=== PATIENT | female | born 1960 | race Caucasian/White ===

== ENCOUNTER 2017-12-01 12:12 | Inpatient (IN) | payer MEDICARE, BC ==
[2017-11-26 15:52] LABS: BASOPHILS % (AUTO) 0.7 % (0-1); EOSINOPHILS # (AUTO) 0.1 X10'3 (0-0.9); EOSINOPHILS % (AUTO) 1.3 % (0-6); LYMPHOCYTES # (AUTO) 1.7 X10'3 (1.1-4.8); MEAN CORPUSCULAR HEMOGLOBIN 35.8 PG (27.0-31.0); MEAN CORPUSCULAR HGB CONC 34.6 % (33.0-36.5); MEAN CORPUSCULAR VOLUME 103.6 FL (78-98); MEAN PLATELET VOLUME 6.7 FL (7.4-10.4); MONOCYTES # (AUTO) 0.8 X10'3 (0-0.9); MONOCYTES % (AUTO) 16.7 % (2-12); NEUTROPHILS # (AUTO) 2.2 X10'3 (1.8-7.7); NEUTROPHILS % (AUTO) 46.3 % (42-75); PRE OP HEMATOCRIT 36.9 % (35.0-45.0); PRE OP HEMOGLOBIN 12.8 g/dL (12.0-16.0); PRE OP PLATELET COUNT 374 X10'3 (140-440); RED BLOOD COUNT 3.56 X10'6 (4.20-5.60)
[2017-11-26 16:02] LABS: PRE OP INR 0.9 INR; PRE OP PROTIME 9.4 SECONDS (9.0-12.0)
[2017-11-26 16:06] LABS: ALBUMIN 4.2 G/DL (3.4-5.0); ALBUMIN/GLOBULIN RATIO 1.2 (1.1-1.5); ALKALINE PHOSPHATASE 82 IU/L (46-116); BLOOD UREA NITROGEN 14 MG/DL (7-18); BUN/CREATININE RATIO 16.7 (6.6-38.0); CALCIUM 9.5 MG/DL (8.5-10.1); CHLORIDE 100 MMOL/L (99-107); CREATININE 0.84 MG/DL (0.40-0.90); PRE OP ALT 32 U/L (30-65); PRE OP ANION GAP 8 (8-16); PRE OP AST 25 U/L (10-37); PRE OP BILIRUB, TOTAL 0.4 MG/DL (0.0-1.0); PRE OP GLUCOSE 93 MG/DL (70-104); PRE OP POTASSIUM 3.7 MMOL/L (3.4-5.1); PRE OP SODIUM 138 MMOL/L (135-145); TOTAL PROTEIN 7.7 G/DL (6.4-8.2); eGFR 70 ML/MIN
[2017-11-26 16:06] LABS: CLARITY,URINE CLEAR (Clear); COLOR,URINE YELLOW (Yellow); GLUCOSE, URINE NEGATIVE (Neg); KETONES,URINE NEGATIVE (Neg); LEUKOCYTE ESTERASE ,URINE MODERATE (Neg); NITRITES, URINE NEGATIVE (Neg); OCCULT BLOOD,URINE NEGATIVE (Neg); PROTEIN,URINE NEGATIVE (Neg); UROBILINOGEN,URINE 0.2 E.U/dL (0.2-1.0)
[2017-11-26 16:07] LABS: UA COLLECTION TYPE VOIDED
[2017-11-26 16:08] LABS: BACTERIA,URINE 2+ /HPF (Neg); RBC,URINE NONE SEEN /HPF (0-2)
[2017-11-26 16:09] LABS: SQUAMOUS EPITHELIAL CELL,UR NONE SEEN /LPF (FEW)
[~2017-12-01] VITALS: Ht 169.5 cm; Wt 59.6 kg
[2017-12-01] VITALS (16 sets, daily range): BP systolic 117–190; BP diastolic 71–109
[~2017-12-01 12:12] MED LIST: CANNIBUS; DULO-31 PO; VALS80TA26 PO; [UNRECOGNIZED DRUG - CODE] PO; [UNRECOGNIZED DRUG - OTHER] PO; famotidine 20mg tablet PO ONE; ringers solution, lacted 1,000 ML IV SCH
[2017-12-01] MEDS ORDERED: LIDOcaine 1% (10mg/ml) 2ml vial ONE (13:44)
[2017-12-01] MEDS ORDERED: ceFAZolin 1000mg inj ONE (14:04)
[2017-12-01] MEDS ORDERED: BUPIVAcaine/PF 2.5 mg/ml (0.25%) 30ml vial ONE (14:04)
[2017-12-01] MEDS ORDERED: fentaNYL/PF 50MCG/1 ML 2ML syringe ONE ×3 (15:17→17:02)
[2017-12-01] MEDS ORDERED: midazolam 2 mg/2 ml injection ONE (15:17)
[2017-12-01] MEDS ORDERED: LIDOcaine 2% (20mg/ml) 5ml vial ONE (15:34)
[2017-12-01] MEDS ORDERED: rocuronium 10mg/ml inj IV ONE (15:34)
[2017-12-01] MEDS ORDERED: propofol inj 20 ML IV ONE (15:34)
[2017-12-01] MEDS ORDERED: sevoflurane 250ml liquid IH ONE (15:45)
[2017-12-01] MEDS ORDERED: meperidine/PF 50mg/ml syringe ONE ×2 (16:01→17:57)
[2017-12-01] MEDS ORDERED: ringers solution, lacted 1,000 ML IV SCH (18:12)
[2017-12-01] MEDS ORDERED: morphine 2 MG/ML inj. syringe IV PRN ×2 (18:15)
[2017-12-01] MEDS ORDERED: ondansetron/PF 4mg/2ml inj IV PRN (18:15)
[2017-12-01] MEDS ORDERED: HYDROmorphone inj. 0.5 MG/0.5 ML DISP.SYRIN IV PRN (18:15)
[2017-12-01] MEDS ORDERED: glycopyrrolate 0.2mg/ml inj ONE (18:20)
[2017-12-01] MEDS ORDERED: hydrALAZINE 20mg/ml inj. IV ONE (18:20)
[2017-12-01] MEDS ORDERED: neostigmine methylsulfate 1 MG/ML 10ml vial ONE (18:20)
[2017-12-01] MEDS ORDERED: labetalol 5mg/ml 20ml inj. IV ONE (18:20)
[2017-12-01] MEDS ORDERED: esmolol inj. 10 ML IV ONE (18:20)
[2017-12-01] MEDS: HYDROmorphone inj. 0.5 MG/0.5 ML DISP.SYRIN IV PRN ×2 (18:33→18:38)
[2017-12-01] MEDS: HYDROmorphone/NS 1 mg/ml CADD 50 ML IV SCH ×4 (19:00→23:00)
[2017-12-02] MEDS: HYDROmorphone/NS 1 mg/ml CADD 50 ML IV SCH ×12 (01:00→23:00)
[2017-12-02 04:00] VITALS: BP 147/96
[2017-12-02] MEDS ORDERED: ceFOXitin 2 GM ADDvantage bag 100 ML IV ONE (05:30)
[2017-12-02] MEDS: valsartan 80mg tablet PO SCH (07:29)
[2017-12-02] MEDS: duloxetine 30mg CAPSULE.DR PO SCH (07:29)
[2017-12-02 07:30] VITALS: BP 162/94
[2017-12-02] MEDS: enoxaparin 30mg/0.3ml syringe SUBCUT SCH (07:38)
[2017-12-02] MEDS ORDERED: [UNRECOGNIZED DRUG - OTHER] PO SCH (08:00)
[2017-12-02 11:00] VITALS: BP 145/89
[2017-12-02 19:50] VITALS: BP 136/86
[2017-12-03 00:10] VITALS: BP 123/90
[2017-12-03] MEDS: HYDROmorphone/NS 1 mg/ml CADD 50 ML IV SCH ×12 (01:00→23:00)
[2017-12-03] MEDS ORDERED: normal saline 1000ml 1,000 ML IV SCH (05:14)
[2017-12-03 07:47] VITALS: BP 150/106
[2017-12-03] MEDS: duloxetine 30mg CAPSULE.DR PO SCH (08:00)
[2017-12-03] MEDS: valsartan 80mg tablet PO SCH (08:01)
[2017-12-03] MEDS: enoxaparin 30mg/0.3ml syringe SUBCUT SCH (08:03)
[2017-12-03 11:00] VITALS: BP 144/91
[2017-12-03 18:00] VITALS: BP 141/84
[2017-12-04] VITALS: BP 120/79
[2017-12-04] MEDS: HYDROmorphone/NS 1 mg/ml CADD 50 ML IV SCH ×12 (00:56→23:00)
[2017-12-04 07:15] VITALS: BP 128/89
[2017-12-04] MEDS: duloxetine 30mg CAPSULE.DR PO SCH (09:23)
[2017-12-04] MEDS: enoxaparin 30mg/0.3ml syringe SUBCUT SCH (09:23)
[2017-12-04] MEDS: valsartan 80mg tablet PO SCH (09:23)
[2017-12-04 11:38] VITALS: BP 146/89
[2017-12-04] MEDS: potassium CL 20mEq in D5-1/2NS 1,000 ML IV SCH (15:01)
[2017-12-04] MEDS: CADD PCA waste documentation MC SCH (15:34)
[2017-12-04 18:00] VITALS: BP 142/95
[2017-12-05] VITALS: BP 144/93
[2017-12-05] MEDS: HYDROmorphone/NS 1 mg/ml CADD 50 ML IV SCH ×12 (01:00→23:00)
[2017-12-05 05:21] LABS: BASOPHILS % (AUTO) 0.4 % (0-1); EOSINOPHILS # (AUTO) 0.2 X10'3 (0-0.9); EOSINOPHILS % (AUTO) 3.9 % (0-6); HEMATOCRIT 29.5 % (35.0-45.0); HEMOGLOBIN 10.3 g/dl (12.0-16.0); LYMPHOCYTES # (AUTO) 0.9 X10'3 (1.1-4.8); LYMPHOCYTES % (AUTO) 15.5 % (21-51); MEAN CORPUSCULAR HEMOGLOBIN 35.4 PG (27.0-31.0); MEAN CORPUSCULAR HGB CONC 34.8 % (33.0-36.5); MEAN CORPUSCULAR VOLUME 101.7 FL (78-98); MEAN PLATELET VOLUME 6.4 FL (7.4-10.4); MONOCYTES # (AUTO) 0.6 X10'3 (0-0.9); MONOCYTES % (AUTO) 10.5 % (2-12); NEUTROPHILS # (AUTO) 4.2 X10'3 (1.8-7.7); NEUTROPHILS % (AUTO) 69.7 % (42-75); PLATELET COUNT 328 X10'3 (140-440)
[2017-12-05 06:06] LABS: ALANINE AMINOTRANSFERASE 37 U/L (12-78); ALBUMIN/GLOBULIN RATIO 0.8 (1.1-1.5); ALKALINE PHOSPHATASE 51 IU/L (46-116); ANION GAP 9 (8-16); ASPARTATE AMINO TRANSFERASE 35 U/L (10-37); BILIRUBIN,TOTAL 0.9 MG/DL (0.1-1.0); BLOOD UREA NITROGEN 4 MG/DL (7-18); BUN/CREATININE RATIO 5.4 (6.6-38.0); CALCIUM 9.2 MG/DL (8.5-10.1); CHLORIDE 100 MMOL/L (99-107); CREATININE 0.74 MG/DL (0.40-0.90); GLUCOSE 97 MG/DL (70-104); POTASSIUM 3.8 MMOL/L (3.5-5.1); SODIUM 141 MMOL/L (135-145); TOTAL CARBON DIOXIDE 31.6 MMOL/L (24-32); TOTAL PROTEIN 6.6 G/DL (6.4-8.2); eGFR 81 ML/MIN
[2017-12-05 07:00] VITALS: BP 137/72
[2017-12-05] MEDS: potassium CL 20mEq in D5-1/2NS 1,000 ML IV SCH (08:31)
[2017-12-05] MEDS: duloxetine 30mg CAPSULE.DR PO SCH (08:33)
[2017-12-05] MEDS: valsartan 80mg tablet PO SCH (08:33)
[2017-12-05] MEDS: enoxaparin 30mg/0.3ml syringe SUBCUT SCH (08:33)
[2017-12-05 12:00] VITALS: BP 144/88
[2017-12-05 19:30] VITALS: BP 127/83
[2017-12-06] VITALS: BP 153/90
[2017-12-06] MEDS: HYDROmorphone/NS 1 mg/ml CADD 50 ML IV SCH ×6 (01:00→11:00)
[2017-12-06] MEDS: potassium CL 20mEq in D5-1/2NS 1,000 ML IV SCH (03:55)
[2017-12-06] MEDS: duloxetine 30mg CAPSULE.DR PO SCH (09:26)
[2017-12-06] MEDS: valsartan 80mg tablet PO SCH (09:27)
[2017-12-06] MEDS: enoxaparin 30mg/0.3ml syringe SUBCUT SCH (09:29)
[2017-12-06 09:34] VITALS: BP 165/95
[2017-12-06 11:50] VITALS: BP 135/72
[2017-12-06] MEDS ORDERED: oxyCODONE/APAP 5-325mg tablet PO PRN (14:15)
[2017-12-06] MEDS: oxyCODONE/APAP 10/325mg tablet PO PRN (14:58)
[2017-12-06] MEDS: CADD PCA waste documentation MC SCH (16:16)
[2017-12-06 19:30] VITALS: BP 150/92
[2017-12-07] VITALS: BP 150/92
[2017-12-07] MEDS: duloxetine 30mg CAPSULE.DR PO SCH (07:08)
[2017-12-07] MEDS: valsartan 80mg tablet PO SCH (07:08)
[2017-12-07] MEDS: oxyCODONE/APAP 10/325mg tablet PO PRN (07:08)
[2017-12-07] MEDS: enoxaparin 30mg/0.3ml syringe SUBCUT SCH (07:11)
[2017-12-07] MEDS ORDERED: PER10325T PO (11:14)
[2017-12-07 12:33] VITALS: BP 134/78
== END 2017-12-07 13:25 | disposition home or self-care (01) | DRG 330 ==
LOC: PAS IN 12:12 → EDSTATUS 15:15 → SUR 3N 19:27
PROVIDERS: ADMIT Surgery; ATTEND Surgery
PROC: 0DBM4ZZ Excision of Descending Colon, Percutaneous Endoscopic Approach (ICD-10-PCS; 2017-12-01)
PROC: 0T788DZ Dilation of Bilateral Ureters with Intraluminal Device, Via Natural or Artificial Opening Endoscopic (ICD-10-PCS; 2017-12-01)
PROC: BT17ZZZ Fluoroscopy of Left Ureter (ICD-10-PCS; 2017-12-01)
PROC: BT16ZZZ Fluoroscopy of Right Ureter (ICD-10-PCS; 2017-12-01)
PROC: 0DTN4ZZ Resection of Sigmoid Colon, Percutaneous Endoscopic Approach (ICD-10-PCS; principal; 2017-12-01 15:15)
PROC: 0FB24ZX Excision of Left Lobe Liver, Percutaneous Endoscopic Approach, Diagnostic (ICD-10-PCS; 2017-12-01 15:15)
DX: C18.7 Malignant neoplasm of sigmoid colon (principal); I16.9 Hypertensive crisis, unspecified; R16.0 Hepatomegaly, not elsewhere classified; I10 Essential (primary) hypertension; M79.7 Fibromyalgia; M19.90 Unspecified osteoarthritis, unspecified site; Z90.710 Acquired absence of both cervix and uterus; Z79.899 Other long term (current) drug therapy; Z83.3 Family history of diabetes mellitus; Z82.49 Family history of ischemic heart disease and other diseases of the circulatory system
CPT/HCPCS: 36415; 76001; 80053; 81001; 82378; 85025; 85610; 85730; 86885; 86900; 86901; 87070; 87077; 87088; 87186; 88305; 88307; 88309; 93005; A4402; A6255; A7000; C1758; C1769; J0360; J0690; J0694; J1170; J1650; J2001; J2175; J2250; J2270; J2704; J2710; J3010; J3490; J7030; J7120